=== PATIENT | male | born 1975 | race Caucasian/White ===

== ENCOUNTER 2020-08-06 15:43 | Emergency (ER) | payer OTHER, SELFPAY ==
--- NOTE | ~2020-08-06 | XR_ITS ---
XR chest 2V DATE: 08/06/2020 16:25 INDICATION: Tachycardia, shortness of breath, tingling fingers after running today TECHNIQUE: PA and lateral views COMPARISON: 05/18/2018 PA and lateral chest FINDINGS: Normal heart size. No hilar or mediastinal enlargement. No pulmonary infiltrate or consolid ation, pleural effusion or pulmonary vascular congestion or pneumothorax is detected. IMPRESSION: No active cardiopulmonary disease Reviewed, dictated and finalized at location A. [employer]
[2020-08-06 15:53] VITALS: BP 148/95; PULSE 83; RESP 16; TEMP 36.7; O2SAT 99
--- NOTE | 2020-08-06 16:00 | ECG_ITS ---
Measurements Intervals [place] Rate: 83 P: 49 DE: 175 QRS: 37 QRSD: 95 T: 15 QT: 344 QTc: 406 Interpretive Statements SINUS RHYTHM BORDERLINE ST-T WAVE ABNORMALITY- INFERIOR LEADS BORDERLINE ECG Electronically Signed On 08-06-2020 16:07:51 BIOLOGY SPECIALIST by Sameer Park D.O.
[2020-08-06 16:04] LABS: Glucose Point of Care 173 (65-105)
[2020-08-06 16:11] LABS: Basophils Percent Auto 0.5 % (0.2-1.2); Eosinophils Absolute Auto 0.2 K/mm3 (0-0.3); Eosinophils Percent Auto 2.5 % (0-4.4); Hematocrit 43.3 % (42.0-52.0); Hemoglobin 15.6 g/dL (14.0-18.0); Immature Granulocyte Absolute 0.02 K/mm3 (0.00-0.031); Immature Granulocyte Percent A 0.3 % (0-0.5); Lymphocytes Absolute Auto 1.56 K/mm3 (0.9-3.2); Lymphocytes Percent Auto 20.1 % (18.3-44.2); Mean Corpuscular Hemoglobin 29.9 pg (26-34); Mean Platelet Volume 9.6 fl (7.4-10.4); Monocytes Absolute Auto 0.6 K/mm3 (0.1-0.6); Monocytes Percent Auto 7.2 % (2.6-8.5); Neutrophils Absolute Auto 5.4 K/mm3 (1.3-6.7); Neutrophils Percent Auto 69.4 % (45.5-73.1); Platelet Count Result 228 k/mm3 (150-375); Red Blood Count 5.22 M/mm3 (4.6-6.20); Red Cell Distribution Width 12.2 % (11.5-14.5); White Blood Count 7.8 K/mm3 (4.5-10.0)
--- NOTE | 2020-08-06 16:23 | PC.NURSE ---
Pt to XRAY via WC.
[2020-08-06 16:26] LABS: Anion Gap 10 mmol/L (8-16); Blood Urea Nitrogen 12 mg/dL (9-20); Calcium 9.5 mg/dL (8.4-10.2); Carbon Dioxide 23 mmol/L (22-30); Chloride 104 mmol/L (98-107); Estimated CRCL calculation 109 ml/min; Estimated Glomerular Filt Rate > 60; Glucose 164 mg/dL (75-110); Potassium 3.8 mmol/L (3.4-5.0); Sodium 137 mmol/L (137-145)
[2020-08-06 17:10] VITALS: BP 137/93; PULSE 70; RESP 12; O2SAT 97
[2020-08-06 18:03] VITALS: BP 139/87; PULSE 75; RESP 18; O2SAT 98
[2020-08-06] MEDS: LACTATED RINGERS 1,000 ML 999 ML IV CONT (18:03)
[2020-08-06 18:06] LABS: Troponin I < 0.012 ng/mL (0.000-0.034)
[2020-08-06 18:09] LABS: Free T4 Free Thyroxine 1.33 ng/mL (0.78-2.19)
--- NOTE | 2020-08-06 18:34 | ED.ARRPALP ---
HPI - Arrhythmia/Palpitations General Chief Complaint: Dizziness Stated Complaint: palp/tingling Time Seen by Provider: 08/06/20 16:21 Source: patient Mode of arrival: ambulatory Limitations: no limitations History of Present Illness HPI narrative: 45-year-old male History of well-controlled type 1 diabetes Presents for evaluation of palpitations tingling and dyspnea He went for a approximately 2-1/2 mile run at a swifter pace than usual He had been home for a while following his run before the symptoms started, after his Apple Watch indicated a heart rate over 100 He did not have any chest pain no diaphoresis no nausea or vomiting The symptoms are now gone and he reports feeling really good Related Data Home Medications Medication Instructions Recorded Confirmed aspirin 81 mg tablet,delayed 81 mg PO DAILY 07/29/20 07/29/20 release Allergies Allergy/AdvReac Type Severity Reaction Status Date / Time No Known Allergies Allergy Verified 08/01/20 07:09 Review of Systems Review of Systems: All systems reviewed & are unremarkable except as noted in HPI and below Constitutional: Constitutional: Denies chills, Denies fatigue, Denies fever(s), Denies headache(s) and Denies weakness Eyes: Eyes: Reports no additional eye complaints and Denies change in vision ENT: Denies headache(s), Denies epistaxis, Denies nasal congestion and Denies sore throat Cardiovascular: Cardiovascular: Denies chest pain, Reports rapid heart rate, Denies leg edema, Denies palpitations and Denies dyspnea Respiratory: Respiratory: Denies cough, Reports dyspnea and Denies wheezing Gastrointestinal: Gastrointestinal: Denies abdominal pain, Denies diarrhea, Denies nausea and Denies vomiting Genitourinary: Genitourinary: Denies hematuria, Denies dysuria and Denies urinary frequency Musculoskeletal: Musculoskeletal: Denies deformity, Denies arthralgias, Denies joint swelling, Denies muscle weakness and Denies numbness Integumentary/Breasts: Skin/Breast: Denies rash and Denies wounds Neurologic: Denies headache(s), Denies focal weakness, Denies numbness and Denies weakness Comments: Tingling Psychiatric: Psychiatric: Reports no additional psychiatric complaints Endocrine: Endocrine: Denies fatigue and Denies palpitations Hematologic/Lymphatic: Hematologic/Lymphatic: Denies easy bleeding and Denies easy bruising Allergic/Immunologic: Allergic/Immunologic: Denies wheezing PMFSH Past Medical History Medical History (Updated 08/06/20 @ 18:46 by Dane Pardo MD) Chronic right shoulder pain Encounter for long-term (current) use of medications Family history of bicuspid aortic valve Hyperlipidemia Migraines Murmur Seasonal allergies Tonsillitis Type 1 diabetes mellitus Family History Family History Mother Family history of migraine headaches Hypertension Family history of malignant neoplasm of breast in first degree relative Mixed hyperlipidemia Sibling Family history of migraine headaches Asthma Family history of diabetes mellitus in first degree relative Diabetes mellitus Father Hypertension Family history of alcoholism Grandparent Testicular cancer Social History Social History Smoking status: Never smoker Second hand tobacco smoke exposure: No Alcohol intake: current Gender identity (if verbalized by the patient): Male Exam Const: General: no acute distress, well developed and awake Nutritional Appearance: well nourished Orientation/consciousness: patient oriented x3 (alert) Limitations: no limitations HENMT: Head: normocephalic and atraumatic Ears: external ears normal General nose exam: No nasal discharge present and no epistaxis Face and sinus: face symmetric Eyes: Conjunctivae: conjunctivae normal Sclera: sclerae normal EOM: EOMs intact bilaterally Neck: Neck: norm
[2020-08-06 19:01] VITALS: BP 141/93; PULSE 82; RESP 16; O2SAT 99
== END 2020-08-06 19:04 | disposition home or self-care (01) ==
PROVIDERS: Emergency Medicine; Emergency Provider Emergency Medicine; PCP Internal Medicine
DX: R00.2 Palpitations (principal); E10.9 Type 1 diabetes mellitus without complications; E78.5 Hyperlipidemia, unspecified
CPT/HCPCS: 36415; 71046; 80048; 84439; 84443; 84484; 85025; 93005; 96360; 99284; J7120

== ENCOUNTER 2020-08-18 14:21 | Outpatient (CLI) | payer OTHER, SELFPAY ==
--- NOTE | 2020-08-18 14:46 | ECHO_ITS ---
Patient Info Name: Hans Graham Age: 45 years : 1975 Gender: Male Ht: 74 in Wt: 230 lbs BSA: 2.35 m2 HR: 62 bpm BP: 153 / 98 mmHg Technical Quality: Good Exam Date: 08/18/2020 2:52 PM Exam Location: [facility] Pulmonary Patient Status: Outpatient Admit Date: 08/18/2020 Staff Ordering Physician: Wilian Youngblood MD [employer] Manager: Filomena Palmer RDCS Attending Provider: Wilian Youngblood MD Referring Physician: Rylie MARTÍNEZ; Exam Type: CA echo doppler color flow Study Info Indications - murmur palpitations Complete two-dimensional, color flow and Doppler transthoracic echocardiogram is performed. Summary 1. Complete two-dimensional, color flow and Doppler transthoracic echocardiogram is performed. 2. Left ventricular chamber dimension is normal. 3. Left ventricular systolic function is normal, estimated at 60-65%. 4. The left ventricular diastolic function is grade I diastolic dysfunction. 5. E/e' 7 is not elevated. 6. No pulmonary hypertension, estimated pulmonary arterial systolic pressure is 23 mmHg. Left Ventricle E/e' 7 is not elevated. Left ventricular chamber dimension is normal. Left ventricular systolic function is normal, estimated at 60-65%. The left ventricular diastolic function is grade I diastolic dysfunction. Right Ventricle Right ventricular chamber dimension is normal. Right ventricular systolic function is normal. Left Atria Left atrial chamber dimension is normal. Right Atria Right atrial chamber dimension is normal. Aortic Valve The aortic valve is trileaflet. There is no aortic valve stenosis. There is no aortic valve regurgitation. Pulmonic Valve There is no pulmonic regurgitation. Mitral Valve There is no mitral valve stenosis. There is no mitral valve regurgitation. Tricuspid Valve There is no tricuspid valve regurgitation. No pulmonary hypertension, estimated pulmonary arterial systolic pressure is 23 mmHg. Pericardium/Pleural There is no pericardial effusion. Inferior Vena Cava Normal inferior vena cava with >50% collapse upon inspiration consistent with normal right atrial pressure, 5 mmHg. Aorta The aortic root size at the sinus of Valsalva is normal. Left Ventricular Outflow Tract Name Value Normal LVOT 2D LVOT Diameter 2.0 cm LVOT Doppler LVOT Peak Gradient 4 mmHg LVOT Mean Gradient 2 mmHg LVOT VTI 22 cm LVOT VTI/AV VTI Ratio 1.0 LVOT Stroke Volume 69 ml LVOT CO 13.8 l/min LVOT CI 5.9 l/min/m2 Pulmonic Valve Name Value Normal PV Doppler PV Peak Gradient 3 mmHg Mitral Valve
--- NOTE | 2020-08-25 12:36 | WPDHOLTEREM ---
Holter/Event Monitor Holter/Event Monitor Date of procedure: 08/18/20 Procedure Type: 48 holter monitor Indications: Palpitations Conclusion: 1. 48 hour holter monitor on 08/18/20. 2. Underlying rhythm is sinus rhythm. HR range 44-138 bpm; average HR 72 bpm. 3. There are 20 premature supraventricular complexes and 2 supraventricular couplets. No supraventricular tachycardia. 4. There are 40 premature ventricular complexes. No ventricular tachycardia. 5. No sinoatrial or atrioventricular blocks. No significant pauses greater than 2 seconds. 6. Patient reports symptoms of heart racing, shortness of breath which demonstrate sinus rhythm, HR range 64-87 bpm.
== END 2020-08-18 14:22 | disposition home or self-care (01) ==
LOC: ANHCARD 14:22
PROVIDERS: PCP Internal Medicine; Visit Provider Internal Medicine
DX: R01.1 Cardiac murmur, unspecified (principal); R00.2 Palpitations; Z82.79 Family history of other congenital malformations, deformations and chromosomal abnormalities
CPT/HCPCS: 93225; 93226; 93306

== ENCOUNTER 2022-11-12 09:28 | Outpatient (CLI) | payer OTHER, SELFPAY ==
--- NOTE | ~2022-11-12 | XR_ITS ---
EXAMINATION: XR UGIAC wo kub DATE: 11/12/2022 10:43 INDICATION: Dysphagia. TECHNIQUE: The patient drank thick barium, gas-producing crystals, and thin barium. Fluoroscopy of th e esophagus, stomach, and proximal small bowel was performed. Fluoroscopy exposure time was 0.5 minut es. The total number of images was 275. Total dose-area product was 1.908 Gy-cm^2. COMPARISON: None. FINDINGS: There is no mass or stricture of the esophagus. Esophageal motility is normal. There is no hiatal hernia. There was no gastroesophageal reflux with provocative maneuvers. The stomach and proxi mal small bowel show normal folding patterns. IMPRESSION: 1. Normal upper gastrointestinal series. Reviewed, dictated and finalized at location A.
--- NOTE | ~2022-11-12 | XR_ITS ---
EXAMINATION: XR barium swallow modified DATE: 11/12/2022 10:43 INDICATION: Dysphagia. TECHNIQUE: The patient was given barium-containing material of multiple consistencies to swallow by t he speech pathologist while I performed fluoroscopy. Fluoroscopy exposure time was 0.3 minutes. The n umber of fluoroscopy images saved to the PACS was 1. Dose-area product was 2.288 Gy-cm^2. FINDINGS: The oral stage, pharyngeal stage, and cervical/esophageal stage of the swallow are normal. IMPRESSION: 1. Normal swallow. 2. Please refer to the speech therapy report for recommendations. Reviewed, dictated and finalized at location A.
--- NOTE | 2022-11-12 10:30 | REHSTMBS ---
Assessment and note entered by Ashley Berumen, AIRCONDITIONING DRAFTING OFFICER Modified Barium Swallow Evaluation Feeding Type Recommended Oral Food Consistency Regular, Level 7 Liquid Consistency Thin (0) ST Clinical Summary MODIFIED BARIUM SWALLOW STUDY (MBS) This patient was seen for a Modified Barium Swallow study at the request of his physician. Patient actually denies difficulty at the pharyngeal level but states [id number] solid foods such as steak, chicken, and pizza tend to hang up at the lower esophageal level/stomach level and he has to walk around, drink water, or even bend over to facilitate clearing the material at that level. Patient was viewed in the lateral position to the level of C5/C6. He was presented with various consistencies and consistently exhibited quick swallows with no pharyngeal residue and no risk for aspiration. Patient may remain on Regular Diet and Regular Liquids. He should cut meat into smaller pieces, chew thoroughly, and use gravy and other forms of moisture to facilitate movement of material through the pharynx. He was to receive another assessment of the esophagus after the MBS. Patient is referred back to his physician for further assessment of his complaints.
== END 2022-11-12 09:29 | disposition home or self-care (01) ==
PROVIDERS: PCP Internal Medicine; Visit Provider Internal Medicine
DX: R13.10 Dysphagia, unspecified (principal)
CPT/HCPCS: 74246; 92611

== ENCOUNTER 2023-10-07 08:23 | Outpatient (CLI) | payer OTHER, SELFPAY ==
--- NOTE | ~2023-10-07 | XR_ITS ---
Clinical Indication: Cough PA and lateral views of the chest: Comparison: 08/06/2020 Findings: The lungs are clear, without evidence of focal consolidation or pleural effusion. Cardiome diastinal silhouette is within normal limits. Bones and soft tissues are unremarkable. Impression: Normal chest. Reviewed, dictated and finalized at [facility]. OTICS INVESTIGATOR Impression: Normal chest.
== END 2023-10-07 08:24 ==
PROVIDERS: PCP Internal Medicine; Visit Provider Internal Medicine
DX: R05.9 Cough, unspecified (principal); R53.83 Other fatigue; E10.9 Type 1 diabetes mellitus without complications
CPT/HCPCS: 71046

== ENCOUNTER 2023-10-07 11:07 | Outpatient (CLI) | payer OTHER, SELFPAY ==
[2023-10-07 11:26] LABS: Basophils Percent Auto 0.2 % (0.2-1.2); Eosinophils Percent Auto 0.7 % (0-4.4); Hematocrit 41.5 % (42.0-52.0); Hemoglobin 14.2 g/dL (14.0-18.0); Immature Granulocyte Absolute 0.02 K/mm3 (0.00-0.031); Immature Granulocyte Percent A 0.4 % (0-0.5); Lymphocytes Absolute Auto 0.62 K/mm3 (0.9-3.2); Lymphocytes Percent Auto 11.5 % (18.3-44.2); Mean Corpuscular HGB Conc 34.2 g/dl (32-36); Mean Corpuscular Hemoglobin 29.5 pg (26-34); Mean Corpuscular Volume 86.1 fl (80-100); Mean Platelet Volume 9.6 fl (7.4-10.4); Monocytes Absolute Auto 0.7 K/mm3 (0.1-0.6); Monocytes Percent Auto 13.7 % (2.6-8.5); Neutrophils Percent Auto 73.5 % (45.5-73.1); Platelet Count Result 148 k/mm3 (150-375); Red Blood Count 4.82 M/mm3 (4.6-6.20); Red Cell Distribution Width 13.1 % (11.5-14.5); White Blood Count 5.4 K/mm3 (4.5-10.0)
[2023-10-07 12:01] LABS: Influenza A QL RT-PCR Positive (Negative); Influenza B QL RT-PCR Negative (Negative); RSV RNA, RT-PCR Negative (Negative); SARS-CoV-2 RNA PCR Negative (Negative)
== END 2023-10-07 11:08 | disposition home or self-care (01) ==
LOC: ANHLAB 11:07
PROVIDERS: PCP Internal Medicine; Visit Provider Internal Medicine
DX: R50.9 Fever, unspecified (principal); R05.9 Cough, unspecified; Z20.822 Contact with and (suspected) exposure to COVID-19
CPT/HCPCS: 36415; 85025; 87637

== ENCOUNTER 2024-12-06 11:13 | Outpatient (CLI) | payer OTHER, SELFPAY ==
--- NOTE | ~2024-12-06 | XR_ITS ---
XR shoulder LT min 2V 12/06/2024 11:40 Indication: Left shoulder pain Procedure: 4 views left shoulder Comparison: No prior studies for comparison. Findings: No fracture, subluxation or dislocation. No focal soft tissue abnormality. No foreign body. There is anatomic alignment. Impression: 1: No significant bone or joint abnormality. Reviewed, dictated and finalized at location A. Impression: 1: No significant bone or joint abnormality.
--- OUTSIDE RECORDS SUMMARY | 2024-12-06 12:03 | XMS_ITS | Clinical Summary ---
Author Organization [facility] Address [address] [place] [address] Phone Care Team Providers Care Cocoa Butter Filter Operator Name Role Phone Simon Duenas DO Primary Care Provider Allergies No known active allergies Medications simvastatin (ZOCOR) 10 mg tablet Take 10 mg by mouth Daily LATE. Active insulin lispro (HUMALOG) 100 unit/mL Solution Inject by subcutaneous injection. Active Active Problems Problem Noted Date Diagnosed Date Sebaceous cyst 10/23/2014 Family History Medical History Relation Name Comments Diabetes Brother Healthy Father Diabetes Maternal Grandfather Healthy Mother Testicular Cancer Paternal Grandfather Relation Name Status Comments Brother Father Alive Maternal Grandfather Mother Alive Paternal Grandfather Social History Tobacco Use Types Packs/Day Years Used Date Smoking Tobacco: Never Alcohol Use Standard Drinks/Week Comments Yes 0 (1 standard drink = 0.6 oz pur e alcohol) Sex and Gender Information Value Date Recorded Sex Assigned at Not on file Legal Sex Male 3:15 PM PROFESSOR OF FAMILY MEDICINE Gender Identity Not on file Sexual Orientation Not on file Last Filed Vital Signs Vital Sign Reading Time Taken Comments Blood Pressure 112/75 10/22/2014 1:41 PM PROFESSOR OF FAMILY MEDICINE Pulse - - Temperature - - Respiratory Rate - - Oxygen Saturation - - Inhaled Oxygen Concentration - - Weight 99.8 kg (220 lb) 10/22/2014 1:41 PM PROFESSOR OF FAMILY MEDICINE Height 188 cm (6' 2 ) 10/22/2014 1:41 PM PROFESSOR OF FAMILY MEDICINE Body Mass Index 28.25 10/22/2014 1:41 PM PROFESSOR OF FAMILY MEDICINE Plan of Treatment Health Maintenance Due Date Last Done Comments DTAP/TDAP/TD VACCINES (1 - Tdap) 1995 HEPATITIS B VACCINES (1 of 3 - 19+ 3-dose series) 06/29 COLORECTAL SCREENING 2021 Colorectal Cancer Screening 2021 FIT-DNA Q 3 years 2021 FIT/FOBT Q 1 year 2021 Flex Sig/CT Colonography Q 5 years 2021 INFLUENZA VACCINE (#1) 2024 Insurance [facility] BLUE ACCESS CHOICE Care Teams Cocoa Butter Filter Operator Relationship Specialty Start Date End Date Simon Duenas DO PCP - General 08/14/15
--- OUTSIDE RECORDS SUMMARY | 2024-12-06 12:03 | XMS_ITS | Referral Summary ---
Author Organization [facility] Address [address] [place] [address] Care Team Providers Care Clam Dredger Name Role Phone Simon Duenas DO Primary Care Provider [phone] Simon Duenas DO Unavailable [phone] Allergies No known active allergies Medications VENTOLIN HFA 90 mcg/actuation inhaler 9 Active atorvastatin (LIPITOR) 20 mg tablet 9 Active HUMALOG U-100 INSULIN 100 unit/mL injection 9 Active ONETOUCH VERIO strip 9 Active blood-glucose meter (ONETOUCH VERIO IQ METER) misc 1 kit by Not Applicable route as directed 8 Active SYMBICORT 160-4.5 mcg/actuation inhaler 9 Active lancets (MICROLET LANCET) misc 1 each by Not Applicable route 4 (four) times a day 8 Active simvastatin (ZOCOR) 10 mg tablet Take 10 mg by mouth Active tadalafil (CIALIS) 5 mg tablet Take 5 mg by mouth daily as needed 8 Active Active Problems Problem Noted Date Diagnosed Date Type 1 diabetes mellitus without complication Overview (12/02/2016): DMI WO CMP NT ST UNCNTRL Pure hypercholesterolemia 01/12/2014 Overview (12/02/2016): PURE HYPERCHOLESTEROLEM Social History Tobacco Use Types Packs/Day Years Used Date Smoking Tobacco: Never Assessed Alcohol Use Standard Drinks/Week Comments No 0 (1 standard drink = 0.6 oz pur e alcohol) Sex and Gender Information Value Date Recorded Sex Assigned at Not on file Legal Sex Male 12:55 AM [employer] Gender Identity Not on file Sexual Orientation Not on file Plan of Treatment Not on file Insurance CHOICE PLUS CHOICE PLUS Care Teams Clam Dredger Relationship Specialty Start Date End Date Simon Duenas DO PCP - General 09/01/17 Simon Duenas DO 09/01/17
--- OUTSIDE RECORDS SUMMARY | 2024-12-06 12:03 | XMS_ITS | Clinical Summary ---
Author Organization [facility] [employer] Address [address] [place] [address] Care Team Providers Care Case Technician Name Role Phone Wilian Youngblood MD Primary Care Provider [phone] Source Comments [facility] [employer],non-owned Affiliates and Associated Physician Practices is amultiple site organization consisting of ambulatory clinics and hospital sitesin [place], [place], [place] and [place]. This disclosure is being madepursuant to the Care Everywhere program and may not contain all information available regarding this patient. Last updated [email or web address] Allergies No known active allergies Medications * Be aware that medications may not be up to date on this document. Alwaysverify current medications with the patient. Medication Sig Dispensed Refills Start Date End Date Status Blood Glucose Monitoring Suppl (Loudie VERIO IQ SYSTEM) W/DEVICE KIT Use 1 kit as directed 1 kit 8 Active blood glucose (HAMLET CONTOUR NEXT TEST) test strip Use 1 strip 4 times daily 400 strip 1 8 Active CIALIS 5 MG tablet Take 1 (one) tablet by mouth once as needed 8 Active ezetimibe (ZETIA) 10 MG tablet 1 Active rosuvastatin (CRESTOR) 40 MG tablet Take 1 (one) tablet by mouth once daily 1 Active vitamin D3 (Cholecalciferol) 25 MCG (1000 UNITS) tablet Take 4 (four) tablets by mouth once daily Active omeprazole EC (PriLOSEC OTC) 20 MG tablet Take 1 (one) tablet by mouth daily before breakfast Active Multiple Vitamin (MULTIVITAMIN ADULT PO) Active insulin glargine (Lantus/Semglee) 100 units/mL pen Inject 24 (twenty four) Units subcutaneously at bedtime 15 mL 1 2 Active Additional Information Patient not taking.Reported on 06/06/2024 Insulin Syringes, Disposable, U-100 1 ML MISCIndications:T ype 1 diabetes mellitus without complication (HCC) Use 1 Each 3 times daily 100 Each 3 Active OneTouch Verio test stripIndications: Type 1 diabetes mellitus without complication (HCC) USE 1 STRIP WITH METER 4 TIMES DAILY 400 strip 3 3 Active albuterol HFA (Proventil; Ventolin; Proair) 108 (90 Base) MCG/ACT inhaler INHALE 1 PUFF BY MOUTH EVERY 4 HOURS NEEDED FOR SHORTNESS OF BREATH AND/OR WHEEZING 4 Active buPROPion XL 24hr (Wellbutrin-XL) 150 MG tablet 4 Active LORazepam (Ativan) 0.5 MG tablet 4 Active Continuous Glucose Transmitter (Dexcom G6 Transmitter) MISCIndications:T ype 1 diabetes mellitus without complication (HCC) USE ONE TRANSMITTER WITH WHITE SUGAR SUPERVISOR/SENSORS AND REPLACE EVERY 3 MONTHS 1 Each 1 4 Active Continuous Glucose Sensor (Dexcom G7 Sensor) MISCIndications:T ype 1 diabetes mellitus without complication (HCC) Use 1 Each every 10 days 9 Each 3 4 Active insulin lispro (HumaLOG) 100 UNIT/ML vial INJECT SUBCUTANEOUSLY UP TO 90 UNITS DAILY VIA INSULIN PUMP 90 mL 5 Active insulin lispro (HumaLOG) 100 UNIT/ML vial INJECT SUBCUTANEOUSLY UP TO 90 UNITS DAILY VIA INSULIN PUMP 90 mL 5 12/04/19 25 Discontinued Active Problems Problem Noted Date Diagnosed Date Dyslipidemia 08/03/2018 Type 1 diabetes mellitus without complication Overview (07/09/2020): Overview: DMI WO CMP NT ST UNCNTRL Dietary counseling and surveillance 07/11/2012 Encounters Date Type Department Care Team Description 12/02/2024 Refill [facility] - Endocrinology [address] [place] [address], [address] [place] [address] Ramos Tapia MD Refill Request 10/16/2024 10:40 AM AUTOMOBILE INSURANCE CLAIM EXAMINER Video Visit [facility] Endocrinology [address] [place] [address], [address] [place] [address] Ramos Tapia MD Type 1 diabetes mellitus without complication ; Insulin pump titration; Dyslipidemia 09/25/2024 Refill [facility] - Endocrinology [address] [place] [address], [address] [place] [address] Ramos Tapia MD Refill Request from Last 3 Months Immunizations Name Administration Dates Next Due INFLUENZA VACCINE, QUADR. (F LUZONE; FLULAVAL; FLUARIX; AFLURIA QUADRIVALENT; 6MO+), 0.5 ML (IIV4) 05/07/2020,06/25/2019 Family History Medical History Relation Name Comments Diabetes - Type 1 Brother Diabetes - Type 2 Maternal Grandfather Diabetes - Type 2 Maternal Uncle Cancer - Breast Mother Diabetes - Gestational Sister Relation Name Status Comments Brother Father Alive Maternal Grandfather Maternal Uncle Mother Alive Sister Social History Tobacco Use Types Packs/Day Years Used Date Smoking Tobacco: Never Smokeless Tobacco: Never Tobacco Cessation:Counseling Given: Not Answered Alcohol Use Standard Drinks/Week Comments Yes 2 (1 standard drink = 0.6 oz pur e alcohol) 5 days per week Sex and Gender Information Value Date Recorded Sex Assigned at Male 03/05/2021 8:22 AM CDT Gender Identity Male 03/05/2021 8:22 AM CDT Sexual Orientation Straight 03/05/2021 8: 22 AM CDT Last Filed Vital Signs Vital Sign Reading Time Taken Comments Blood Pressure 116/70 06/06/2024 11:13 AM CDT Pulse - - Temperature - - Respiratory Rate - - Oxygen Saturation - - Inhaled Oxygen Concentration - - Weight 108.4 kg (239 lb) 06/06/2024 11:13 AM CDT Height 188 cm (6' 2 ) 06/06/2024 11:13 AM CDT Body Mass Index 30.69 06/06/2024 11:13 AM CDT Plan of Treatment Health Maintenance Due Date Last Done Comments COLOGUARD (AGES 45-75) - COLON CA SCREENING 1976 COLON MONITORING 1976 COLONOSCOPY - COLON CA SCREENING 1976 CT COLONOGRAPHY - COLON CA SCREENING 1976 Colorectal Cancer Screening 1976 FIT - COLON CA SCREENING 1976 FLEX SIG - COLON CA SCREENING 1976 HIV SCREENING 1991 HEPATITIS C SCREENING 07/09/1994 DTAP/TDAP/TD VACCINES (1 - Tdap) 1995 HEPATITIS B VACCINE (1 of 3 - 19+ 3-dose series) 1995 PNEUMOCOCCAL VACCINE (1 of 2 - PCV) 1995 DIABETES RETINOPATHY SCREENING 10/16/2020 10/16/2018, 09/28/2017 COVID-19 VACCINE (1 - season) 2024 DEPRESSION SCREENING 08/29/2024 DIABETES-FOOT EXAM WITH MONOFILAMENT 02/14/2025 02/15/2024 INFLUENZA VACCINE (Season Ended) 2025 05/07/2020, 06/25/2019 DIABETES-HGB A1C 05/29/2025 11/27/2024, 04/2024, 02/15/2024, Additional history exists DIABETES - URINE PROTEIN SCREENING 11/27/2025 11/27/2024, 10/05/2023, 07/21/2022, Additional history exists DIABETES-SERUM CREATININE 11/27/20252024, 10/05/2023, 07/21/2022, Additional history exists ZOSTER VACCINE (1 of 2) 2026 HIB VACCINE Aged Out No longer eligi ble based on patient's age to complete this topic HPV VACCINE Aged Out No longer eligi ble based on patient's age to complete this topic MENINGOCOCCAL (Group B) VACCINE SHARED DECISION-MAKING Aged Out No longer eligible based on patient's age to complete this topic MENINGOCOCCAL GROUPS A/C/Y/W VACCINE Aged Out No longer eligible based on patient's age to complete this topic Procedures Procedure Name Priority Date/Time Associated Diagnosis Comments HEMOGLOBIN A1C Routine 11/27/2024 11:25 AM CDT Type 1 diabetes mellitus without complication (HCC) TSH Routine 11/27/2024 11:25 AM CDT Type 1 diabetes mellitus without complication (HCC) MICROALB/CREAT RATIO URINE RANDOM PANEL Routine 11/27/2024 11:25 AM CDT Type 1 diabetes mellitus without complication (HCC) LIPID PROFILE REFLEX LDL DIRECT Routine 11/27/2024 11:25 AM CDT Type 1 diabetes mellitus without complication (HCC) COMPREHENSIVE METABOLIC PANEL Routine 11/27/2024 11:25 AM CDT Type 1 diabetes mellitus without complication (HCC) DIABETES EYE EXAM Routine 10/16/2018 from Last 3 Months or Most Recently Relevant to Health Maintenance Results * LIPID PROFILE REFLEX LDL DIRECT (11/27/2024 11:25 AM CDT) [facility] Signature Cholesterol 158 100 - 199 mg/dL [facility] ACCOUNT BILL Triglycerides 61 0 - 149 mg/dL [facility] ACCOUNT BILL HDL Cholesterol 65 >39 mg/dL [facility] ACCOUNT BILL VLDL Calculated 12 5 - 40 mg/dL [facility] ACCOUNT BILL LDL Calculated 81 0 - 99 mg/dL [facility] ACCOUNT BILL Cholesterol/HDL Ratio 2.4 0.0 - 5.0 ratio [facility] ACCOUNT BILL Comment: T. Chol/HDL Ratio Men Women 1/2 Avg.Risk 3.4 3.3 Avg.Risk 5.0 4.4 2X Avg.Risk 9.6 7.1 3X Avg.Risk 23.4 11.0 LDL/HDL Ratio 1.2 0.0 - 3.6 ratio [facility] ACCOUNT BILL Comment: LDL/HDL Ratio Men Women 1/2 Avg.Risk 1.0 1.5 Avg.Risk 3.6 3.2 2X Avg.Risk 6.2 5.0 3X Avg.Risk 8.0 6.1 Blood BLOOD SPECIMEN / Unknown 11/27/2024 11:25 AM CDT 11/27/2024 Narrative [facility] ACCOUNT BILL - 11/28/2024 8:07 AM CDT Performed at: 01 - [facility] [id number] [employer] Card Checker: Ryan Hall PhD, Phone: [phone] Ramos Tapia MD LAB - CHEMISTRY ORD ERABLES Performing Organization Address City/[facility]/ZIP Co de Phone Number [facility] ACCOUNT BILL [address] [place] [address] * MICROALB/CREAT RATIO URINE RANDOM PANEL (11/27/2024 11:25 AM CDT) Creatinine Urine 111.9 Not Estab. mg/dL [facility] ACCOUNT BILL Microalbumin Urine 8.0 Not Estab. ug/mL [facility] ACCOUNT BILL Microalbumin/Crea tinine Ratio 7 0 - 29 mg/g creat [facility] ACCOUNT BILL Comment: Normal: 0 - 29 Moderately increased: 30 - 300 Severely increased: >300 Urine URINE SPECIMEN OBTAINED BY CLEAN CATCH PROCEDURE / Unknown 11/27/2024 11:25 AM CDT 11/27/2024 Narrative [facility] ACCOUNT BILL - 11/28/2024 12:07 PM CDT Performed at: - [address] [id number] [employer] Card Checker: Ryan Hall PhD, Phone: Voltaire Ramos Tapia MD LAB - URINE WALL MIRROR DEPARTMENT SUPERVISOR RY ORDERABLES Performing Organization Address [facility] Co de Phone Number [facility] ACCOUNT BILL [address] [place] [address] * (ABNORMAL) HEMOGLOBIN A1C (11/27/2024 11:25 AM CDT) Hemoglobin A1c 7.0(H) 4.8 - 5.6 % [facility] ACCOUNT BILL Comment: Prediabetes: 5.7 - 6.4 Diabetes: >6.4 Glycemic control for adults with diabetes: <7.0 Blood BLOOD SPECIMEN / Unknown 11/27/2024 11:25 AM CDT 11/27/2024 Narrative [facility] ACCOUNT BILL - 11/28/2024 6:06 AM CDT Performed at: [address] [place] [id number] [employer] Card Checker: Ryan Hall PhD, Phone: [phone] Ramos Tapia MD LAB - CHEMISTRY ORD ERABLES [facility] ACCOUNT BILL [address] [place] [address] * (ABNORMAL) COMPREHENSIVE METABOLIC PANEL (11/27/2024 11:25 AM CDT) Glucose 135(H) 70 - 99 mg/dL [facility] ACCOUNT BILL BUN 8 6 - 24 mg/dL [facility] ACCOUNT BILL Creatinine 1.01 0.76 - 1.27 mg/dL [facility] ACCOUNT BILL eGFR by CKD-EPI 92 >59 mL/min/1.7 3 [facility] ACCOUNT BILL BUN/Creatinine Ratio 8(L) 9 - 20 [facility] ACCOUNT BILL Sodium 140 134 - 144 mmol/L [facility] ACCOUNT BILL Potassium 5.0 3.5 - 5.2 mmol/L [facility] ACCOUNT BILL Chloride 103 96 - 106 mmol/L [facility] ACCOUNT BILL CO2 24 20 - 29 mmol/L [facility] ACCOUNT BILL Calcium 9.3 8.7 - 10.2 mg/dL [facility] ACCOUNT BILL Protein Total 6.7 6.0 - 8.5 g/dL [facility] ACCOUNT BILL Albumin 4.6 4.1 - 5.1 g/dL [facility] ACCOUNT BILL Globulin Total 2.1 1.5 - 4.5 g/dL [facility] ACCOUNT BILL Bilirubin Total 0.5 0.0 - 1.2 mg/dL [facility] ACCOUNT BILL Alkaline Phosphatase 77 44 - 121 IU/L [facility] ACCOUNT BILL AST 27 0 - 40 IU/L [facility] ACCOUNT BILL ALT 33 0 - 44 IU/L [facility] ACCOUNT BILL Blood BLOOD SPECIMEN / Unknown 11/27/2024 11:25 AM CDT 11/27/2024 Narrative [facility] ACCOUNT BILL - 11/28/2024 8:07 AM CDT Performed at: 01 - [facility] [id number] [employer] Card Checker: Ryan Hall PhD, Phone: [phone] Ramos Tapia MD LAB - CHEMISTRY ORD ERABLES [facility] ACCOUNT BILL [address] [place] [address] * TSH (11/27/2024 11:25 AM CDT) TSH 2.220 0.450 - 4.500 uIU/mL [facility] ACCOUNT BILL Blood BLOOD SPECIMEN / Unknown 11/27/2024 11:25 AM CDT 11/27/2024 Narrative [facility] ACCOUNT BILL - 11/28/2024 8:07 AM CDT Performed at: 01 - [facility] [id number] [place], [place] [id number] [employer] Card Checker: Ryan Hall PhD, Phone: [phone] Ramos Tapia MD LAB - CHEMISTRY ORD ERABLES [facility] ACCOUNT BILL [address] [place] [address] * DIABETES EYE EXAM (10/16/2018) Terell Betts HEALTH MAINTENANCE from Last 3 Months or Most Recently Relevant to Health Maintenance Care Teams Case Technician Relationship Specialty Start Date End Date Wilian Youngblood MD [address] [place] [address] PCP - General Internal Medicine 11/02/22
--- OUTSIDE RECORDS SUMMARY | 2024-12-06 12:03 | XMS_ITS | Clinical Summary ---
Author Organization [facility] Address [address] [place] [address] Care Team Providers Care Heavy Equipment Service Manager Name Role Phone Simon Duenas DO Primary Care Provider [phone] Simon Duenas DO Unavailable [phone] Allergies No known active allergies Medications VENTOLIN [...] Pure hypercholesterolemia 01/12/2014 Overview (12/02/2016): PURE HYPERCHOLESTEROLEM Medical History Medical History Date Comments Diabetes mellitus (HCC) Diabetes Hyperlipidemia Hyperlipidemia Family History Medical History Relation Name Comments Coronary artery disease Other Fami ly history of Coronary artery disease; Hyperlipidemia Other Family histor y of Hyperlipidemia; Hypertension Other Family history of Hypertension; Other Other Family history of Diabetes -Type I; Relation Name Status Comments Other Social History Tobacco Use Types Packs/Day Years Used Date Smoking Tobacco: Never Assessed Alcohol Use Standard Drinks/Week Comments No 0 (1 standard drink = 0.6 oz pur e alcohol) Sex and Gender Information Value Date Recorded Sex Assigned at Not on file 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
== END 2024-12-06 11:14 | disposition home or self-care (01) ==
PROVIDERS: PCP Internal Medicine; Visit Provider Internal Medicine
DX: M25.512 Pain in left shoulder (principal); M25.619 Stiffness of unspecified shoulder, not elsewhere classified
CPT/HCPCS: 73030

== ENCOUNTER 2025-04-02 10:24 | Outpatient (CLI) | payer OTHER, SELFPAY ==
--- NOTE | ~2025-04-02 | XR_ITS ---
[id number] 04/02/2025 10:57 Indication: Right foot pain Procedure: 4 views right foot Comparison: No prior studies for comparison. Findings: There is an oblique intra-articular fracture of the first proximal phalanx extending to the interphalangeal joint. Minimal displacement. No other fracture. Mild soft tissue swelling. Lisfranc joint intact. Impression: 1: Oblique minimally displaced intra-articular fracture left first proximal phalanx involving the int erphalangeal joint. Reviewed, dictated and finalized at location A. Impression: 1: Oblique minimally displaced intra-articular fracture left first proximal pha lanx involving the interphalangeal joint.
--- NOTE | ~2025-04-02 | XR_ITS ---
XR ankle LT min 3V 04/02/2025 10:57 Indication: Left ankle pain Procedure: 4 views left ankle Comparison: No prior studies for comparison. Findings: No fracture, subluxation or ankle mortise intact. Talar dome is normal. Impression: 1: No acute fracture. Reviewed, dictated and finalized at location A. Impression: 1: No acute fracture.
--- NOTE | ~2025-04-02 | XR_ITS ---
XR ankle RT min 3V 04/02/2025 10:57 INDICATION: Right foot pain PROCEDURE: 4 views right foot COMPARISON: No prior studies for comparison. FINDINGS: Fracture, dislocation or subluxation is not identified. The soft tissues appear within norm al limits. No foreign bodies are identified. IMPRESSION: 1: NO ACUTE BONE OR JOINT ABNORMALITY IDENTIFIED. Reviewed, dictated and finalized at location A.
--- NOTE | ~2025-04-02 | XR_ITS ---
[id number] 04/02/2025 10:57 Indication: Right foot pain Procedure: 4 views right foot Comparison: No prior studies for comparison. Findings: There is a small ossific density medial to the first interphalangeal joint, likely related to prior trauma. No acute fracture or traumatic malalignment. Lisfranc joint intact. No focal soft ti ssue abnormality. No foreign bodies. Impression: 1: No acute fracture. Reviewed, dictated and finalized at location A. Impression: 1: No acute fracture.
--- OUTSIDE RECORDS SUMMARY | 2025-04-02 10:52 | XMS_ITS | Referral Summary ---
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
--- OUTSIDE RECORDS SUMMARY | 2025-04-02 10:52 | XMS_ITS | Clinical Summary ---
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
--- OUTSIDE RECORDS SUMMARY | 2025-04-02 10:52 | XMS_ITS | Clinical Summary ---
Author Organization [facility] Address [address] [place] [address] Care Team Providers Care Tugger Operator Name Role Phone Wilian Youngblood MD Primary Care Provider [phone] Social History Tobacco Use Types Packs/Day Years Used Date Smoking Tobacco: Never Assessed Sex and Gender Information Value Date Recorded Sex Assigned at Not on file Legal Sex Male 8:11 AM CDT Gender Identity Not on file Sexual Orientation Not on file Plan of Treatment Health Maintenance Due Date Last Done Comments Colorectal Cancer Screening Colonoscopy (10 Years) 1976 Kidney Health Evaluation 1976 Annual Physical 1979 Hepatitis C 1994 DTaP, Tdap and Td Vaccines (1 - Tdap) 1995 Hepatitis B Vaccines (1 of 3 - 19+ 3-dose series) 1995 Pneumococcal Vaccine: Pediatrics (0 to 5 Years) and At-Risk Patients (6 to 49 Years) (1 of 2 - PCV) 1995 Diabetes: Retinopathy Eye Exam 10/16/2020 10/16/2018 COVID-19 Vaccine ( - 2023- season) 2024 Hemoglobin A1C 05/29/2025 11/27/2024, 10/0 04/2024, 02/15/2024, Additional history exists Lipid Panel 11/27/2025 11/27/2024 Meningococcal B Vaccine Aged Out No l onger eligible based on patient's age to complete this topic Meningococcal Vaccine Aged Out No kasi tahmina eligible based on patient's age to complete this topic RSV Immunizations Under 20 Months Aged Out No longer eligible based on patient's age to complete this topic Insurance [facility] Care Teams Tugger Operator Relationship Specialty Start Date End Date Wilian Youngblood MD [address] - [facility] [[email or web address] [address] [place] [address] PCP - General INTERNAL MEDICINE 12/18/24
--- OUTSIDE RECORDS SUMMARY | 2025-04-02 10:52 | XMS_ITS | Clinical Summary ---
Author Organization [facility] Address [address] 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 Gender Identity Not on file Sexual Orientation Not on file Last Filed Vital Signs Vital Sign Reading Time Taken Comments Blood Pressure 112/75 10/22/2014 1:41 PM CONCRETE HOPPER OPERATOR Pulse - - Temperature - - Respiratory Rate - - Oxygen Saturation - - Inhaled Oxygen Concentration - - Weight 99.8 kg (220 lb) 10/22/2014 1:41 PM CONCRETE HOPPER OPERATOR Height 188 cm (6' 2) 10/22/2014 1:41 PM CONCRETE HOPPER OPERATOR Body Mass Index 28.25 10/22/2014 1:41 PM CONCRETE HOPPER OPERATOR Plan of Treatment Health Maintenance Due Date Last Done Comments DTAP/TDAP/TD VACCINES (1 - Tdap) 1995 HEPATITIS B VACCINES (1 of 3 - 19+ 3-dose series) 06/29 COLORECTAL SCREENING 2021 Colorectal Cancer Screening 2021 FIT-DNA Q 3 years 2021 FIT/FOBT Q 1 year 2021 Flex Sig/CT Colonography Q 5 years 2021 INFLUENZA VACCINE (#1) 2025 Insurance [facility] BLUE ACCESS CHOICE Care Teams Wood Heel Attacher Relationship Specialty Start Date End Date Simon Duenas DO PCP - General 08/14/15
--- OUTSIDE RECORDS SUMMARY | 2025-04-02 10:52 | XMS_ITS | Clinical Summary ---
Author Organization [facility] Address [address] [place] [address] Care Team Providers Care Data Sciences Director Name Role Phone Wilian Youngblood MD Primary Care Provider [phone] Source Comments [facility],non-owned Affiliates and Associated Physician Practices is amultiple site organization consisting of ambulatory clinics and hospital sitesin [place], [place] and [place]. This disclosure is being madepursuant to the Care Everywhere program and may not contain all information available regarding this patient. Last updated 18.[facility] Allergies No known active allergies Medications * Be aware that medications may not be up to date on this document. Alwaysverify current medications with the patient. Blood Glucose Monitoring Suppl ([employer] VERIO IQ SYSTEM) W/DEVICE KIT Use 1 kit as directed 1 kit 11/09/19 18 Active blood glucose (HAMLET CONTOUR NEXT TEST) test strip Use 1 strip 4 times daily 400 strip 1 04/04/20 18 Active CIALIS 5 MG tablet Take 1 (one) tablet by mouth once as needed 05/12/20 18 Active ezetimibe (ZETIA) 10 MG tablet 09/30/19 21 Active rosuvastatin (CRESTOR) 40 MG tablet Take 1 (one) tablet by mouth once daily 11/26/19 21 Active vitamin D3 (Cholecalciferol ) 25 MCG (1000 UNITS) tablet Take 4 (four) tablets by mouth once daily Active omeprazole EC (PriLOSEC OTC) 20 MG tablet Take 1 (one) tablet by mouth daily before breakfast Active Multiple Vitamin (MULTIVITAMIN ADULT PO) Active insulin glargine (Lantus/Semglee) 100 units/mL pen Inject 24 (twenty four) Units subcutaneously at bedtime 15 mL 1 04/01/20 22 Active Additional Information Patient not taking.Reported on 06/06/2024 Insulin Syringes, Disposable, U-100 1 ML MISCIndications: Type 1 diabetes mellitus without complication (HCC) Use 1 Each 3 times daily 100 Each 08/04/20 23 Active OneTouch Verio test stripIndications :Type 1 diabetes mellitus without complication (HCC) USE 1 STRIP WITH METER 4 TIMES DAILY 400 strip 3 08/10/20 23 Active albuterol HFA (Proventil; Ventolin; Proair) 108 (90 Base) MCG/ACT inhaler INHALE 1 PUFF BY MOUTH EVERY 4 HOURS NEEDED FOR SHORTNESS OF BREATH AND/OR WHEEZING 10/07/19 24 Active buPROPion XL 24hr (Wellbutrin-XL) 150 MG tablet 02/14/20 24 Active LORazepam (Ativan) 0.5 MG tablet 02/14/20 24 Active Continuous Glucose Transmitter (Dexcom G6 Transmitter) MISCIndications: Type 1 diabetes mellitus without complication (HCC) USE ONE TRANSMITTER WITH CHIMNEY MECHANIC/SENSORS AND REPLACE EVERY 3 MONTHS 1 Each 1 02/20/20 24 Active Continuous Glucose Sensor (Dexcom G7 Sensor) MISCIndications: Type 1 diabetes mellitus without complication (HCC) Use 1 Each every 10 days 9 Each 3 04/25/20 24 Active insulin lispro (HumaLOG) 100 UNIT/ML vial INJECT SUBCUTANEOUSLY UP TO 90 UNITS DAILY VIA INSULIN PUMP 90 mL 02/12/20 25 Active Active Problems Problem Noted Date Diagnosed Date Dyslipidemia 08/03/2018 Type 1 diabetes mellitus without complication Overview (07/09/2020): Overview: DMI WO CMP NT ST UNCNTRL Dietary counseling and surveillance 07/11/2012 Encounters Date Type Department Care Team Description 02/08/2025 Refill [facility] - Endocrinology [address] [place] [address], [address] [place] [address] Ramos Tapia MD Refill Request from Last 3 Months Immunizations Immunization Administration Dates Next Due INFLUENZA VACCINE, QUADR. 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 Not on file Not on file Last Filed Vital Signs Vital Sign Reading Time Taken Comments Blood Pressure 116/70 06/06/2024 11:13 AM CDT Pulse - - Temperature - - Respiratory Rate - - Oxygen Saturation - - Inhaled Oxygen Concentration - - Weight 108.4 kg (239 lb) 06/06/2024 11:13 AM CDT Height 188 cm (6' 2) 06/06/2024 11:13 AM CDT Body Mass Index [...] RETINOPATHY SCREENING 10/16/2020 10/16/2018, 09/28/2017 COVID-19 VACCINE ( season) 2024 DEPRESSION SCREENING 08/29/2024 DIABETES-FOOT EXAM WITH MONOFILAMENT 02/14/2025 02/15/2024 INFLUENZA VACCINE (#1) 2025 05/07/2020, 2018 DIABETES-HGB A1C 05/29/2025 11/27/2024, 04/2024, 02/15/2024, Additional [...] Procedure Name Priority Date/Time Associated Diagnosis Comments MICROALB/CREAT RATIO URINE RANDOM PANEL Routine 11/27/2024 11:25 AM CDT Type 1 diabetes mellitus without complication (HCC) COMPREHENSIVE METABOLIC PANEL Routine 11/27/2024 11:25 AM CDT Type 1 diabetes mellitus without complication (HCC) HEMOGLOBIN A1C Routine 11/27/2024 11:25 AM CDT Type 1 diabetes mellitus without complication (HCC) HM DIABETES EYE EXAM Routine 10/16/2018 from Last 3 Months or Most Recently Relevant to Health Maintenance Results * MICROALB/CREAT RATIO URINE RANDOM PANEL (11/27/2024 [...] 11/28/2024 12:07 PM CDT Performed at: - [address] [id number] Tractor Trailer Mechanic: Ryan Hall PhD, Phone: [phone] Ramos Tapia MD LAB - URINE CHEMISTRY ORDER ZAINAB Final Result Performing Organization Address [facility] de Phone Number [facility] ACCOUNT BILL [address] [place] [address] * (ABNORMAL) HEMOGLOBIN A1C (11/27/2024 11:25 AM CDT) Hemoglobin A1c 7.0(H) 4.8 - 5.6 % [facility] ACCOUNT BILL Comment: Prediabetes: 5.7 - 6.4 Diabetes: >6.4 Glycemic control for adults with diabetes: <7.0 Blood BLOOD SPECIMEN / Unknown 11/27/2024 11:25 AM CDT 11/27/2024 Narrative [facility] ACCOUNT BILL - 11/28/2024 6:06 AM CDT Performed at: [address] [id number] Tractor Trailer Mechanic: Ryan Hall PhD, Phone: [phone] Ramos Tapia MD LAB - CHEMISTRY ORDERABLES Final Result Performing Organization Address [facility] de Phone Number [facility] ACCOUNT BILL [address] [place] [address] * (ABNORMAL) COMPREHENSIVE METABOLIC PANEL (11/27/2024 11:25 [...] 8:07 AM CDT Performed at: 01 - [address] [id number] Tractor Trailer Mechanic: Ryan Hall PhD, Phone: [phone] us Ramos Tapia MD LAB - CHEMISTRY ORDERABLES Final Result [facility] ACCOUNT BILL [address] [place] [address] * DIABETES EYE EXAM (10/16/2018) us Terell Betts HEALTH MAINTENANCE Final Resu lt from Last 3 Months or Most Recently Relevant to Health Maintenance Insurance [facility] Care Teams Data Sciences Director Relationship Specialty Start Date End Date Wilian Youngblood MD [address] [place] [address] PCP - General Internal Medicine 11/02/22
== END 2025-04-02 10:25 | disposition home or self-care (01) ==
PROVIDERS: PCP Internal Medicine; Visit Provider Internal Medicine
DX: S92.411A Displaced fracture of proximal phalanx of right great toe, initial encounter for closed fracture (principal); M79.672 Pain in left foot; M25.572 Pain in left ankle and joints of left foot
CPT/HCPCS: 73610; 73630

== ENCOUNTER 2025-06-27 08:56 | Outpatient (CLI) | payer OTHER, SELFPAY ==
--- NOTE | ~2025-06-27 | US_ITS ---
EXAM/PROCEDURE: US aorta HISTORY: Z82.49 - Family history of ischemic heart disease and oth. COMPARISON: None available. TECHNIQUE: Grayscale, color Doppler, and spectral analysis. FINDINGS: There is no evidence of aneurysm. Likewise, there is no aneurysm of the common iliac arteries seen. There is a moderate degree of atherosclerotic plaque, some of which appears calcified. There is irregular surface characteristics to some of the plaque. IMPRESSION: No evidence of aneurysm. Atherosclerotic change. Reviewed, dictated and finalized at location A.
--- OUTSIDE RECORDS SUMMARY | 2025-06-27 09:19 | XMS_ITS | Clinical Summary ---
Author Organization [email or web address] Address [address] [place] [address] Care Team Providers Care Director Of Institutional Sales Name Role Phone Wilian Youngblood MD Primary Care Provider Source Comments [email or web address],non-owned Affiliates and Associated Physician Practices is amultiple site organization consisting of ambulatory clinics and hospital sitesin [place], [place], [place] and [place]. This disclosure is being madepursuant to the Care Everywhere program and may not contain all information available regarding this patient. Last updated 18.[email or web address] Allergies No known active allergies Medications * Be aware that medications may not be up to date on this document. Alwaysverify current medications with the patient. Blood Glucose Monitoring Suppl ([employer] VERIO IQ SYSTEM) W/DEVICE KIT Use 1 [...] without complication (HCC) USE ONE TRANSMITTER WITH TELEMETRY REGISTERED NURSE/SENSORS AND REPLACE EVERY 3 MONTHS 1 Each 1 02/20/20 24 Active insulin lispro (HumaLOG) 100 UNIT/ML vial INJECT SUBCUTANEOUSLY UP TO 90 UNITS DAILY VIA INSULIN PUMP 90 mL 04/18/20 25 Active Continuous Glucose Sensor (Dexcom G7 Sensor) MISCIndications: Type 1 diabetes mellitus without complication (HCC) CHANGE SENSOR EVERY 10 DAYS 9 Each 05/16/20 25 Active Active Problems Problem Noted Date Diagnosed Date Dyslipidemia 08/03/2018 Type 1 diabetes mellitus without complication Overview (05/29/2025): Overview: DMI WO CMP NT [facility] UNCN[facility] IMO 05/29/2025 Dietary counseling and surveillance 07/11/2012 Encounters Date Type Department Care Team Description 05/16/2025 Refill [facility] - Endocrinology [address] [place] [address], [address] [place] [address] Ramos Tapia MD Refill Request 05/06/2025 Refill [facility] - Endocrinology [address] [place] [address], [address] [place] [address] Ramos Tapia MD Refill Request 04/17/2025 Refill 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 CONSULTANT Office Visit [facility] Endocrinology [address] [place] [address], [address] [address] Ramos Tapia MD [address] [place] [address] [place] [address] Health Maintenance Due Date Last Done Comments [...] 1995 DIABETES RETINOPATHY SCREENING 10/16/2020 10/16/2018, 09/28/2017 DEPRESSION SCREENING 08/29/2024 DIABETES-FOOT EXAM WITH MONOFILAMENT 02/14/2025 02/15/2024 COVID-19 VACCINE ( season) 2025 INFLUENZA VACCINE (#1) 2025 05/07/2020, 2018 DIABETES-HGB [...] 11/28/2024 12:07 PM CDT Performed at: - [address] [id number] Pack Train Driver: Ryan Hall PhD, Phone: [phone] us Ramos Tapia MD LAB - URINE CHEMISTRY ORDER ZAINAB Final Result [facility] ACCOUNT BILL [address] [place] [address] * (ABNORMAL) HEMOGLOBIN A1C (11/27/2024 11:25 AM CDT) Hemoglobin A1c 7.0(H) 4.8 - 5.6 % [facility] ACCOUNT BILL Comment: Prediabetes: 5.7 - 6.4 Diabetes: >6.4 Glycemic control for adults with diabetes: <7.0 Blood BLOOD SPECIMEN / Unknown 11/27/2024 11:25 AM CDT 11/27/2024 Narrative [facility] ACCOUNT BILL - 11/28/2024 6:06 AM CDT Performed at: 01 - [address] [id number] Pack Train Driver: Ryan Hall PhD, Phone: [phone] us Ramos Tapia MD LAB - CHEMISTRY ORDERABLES Final Result [facility] ACCOUNT BILL [address] [place] [address] * (ABNORMAL) COMPREHENSIVE METABOLIC PANEL (11/27/2024 11:25 AM CDT) [facility] Glucose 135(H) 70 - 99 mg/dL [facility] [...] AM CDT Performed at: 01 - [facility] [address] [id number] Pack Train Driver: Ryan Hall PhD, Phone: [phone] us Ramos Tapia MD LAB - CHEMISTRY ORDERABLES Final Result [facility] ACCOUNT BILL [address] [place] [address] * DIABETES EYE EXAM (10/16/2018) us Terell Betts HEALTH MAINTENANCE Final Resu lt from Last 3 Months or Most Recently Relevant to Health [place] [address] [facility] Care Teams Director Of Institutional Sales Relationship Specialty Start Date End Date Wilian Youngblood MD [address] [place] [address] PCP - General Internal Medicine 11/02/22
--- OUTSIDE RECORDS SUMMARY | 2025-06-27 09:20 | XMS_ITS | Clinical Summary ---
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
--- OUTSIDE RECORDS SUMMARY | 2025-06-27 09:20 | XMS_ITS | Clinical Summary ---
Author Organization [facility] Address [address] [place] [address] Phone Care Team Providers Care Pneumatic Tube Repairer Name Role Phone Simon Duenas DO Primary [...] on file Legal Sex Male 3:15 PM CLINICAL PHARMACY MANAGER Gender Identity Not on file Sexual Orientation Not on file Last Filed Vital Signs Vital Sign Reading Time Taken Comments Blood Pressure 112/75 10/22/2014 1:41 PM CLINICAL PHARMACY MANAGER Pulse - - Temperature - - Respiratory Rate - - Oxygen Saturation - - Inhaled Oxygen Concentration - - Weight 99.8 kg (220 lb) 10/22/2014 1:41 PM CLINICAL PHARMACY MANAGER Height 188 cm (6' 2) 10/22/2014 1:41 PM CLINICAL PHARMACY MANAGER Body Mass Index 28.25 10/22/2014 1:41 PM CLINICAL PHARMACY MANAGER Plan of Treatment Health Maintenance Due Date Last Done Comments DTAP/TDAP/TD VACCINES (1 - Tdap) 1995 HEPATITIS B VACCINES (1 of 3 - 19+ 3-dose series) 06/29 COLORECTAL SCREENING 2021 Colorectal Cancer Screening 2021 FIT-DNA Q 3 years 2021 FIT/FOBT Q 1 year 2021 Flex Sig/CT Colonography Q 5 years 2021 INFLUENZA VACCINE (#1) 2025 Insurance [facility] BLUE ACCESS CHOICE Care Teams Pneumatic Tube Repairer Relationship Specialty Start Date End Date Simon Duenas DO PCP - General 08/14/15
== END 2025-06-27 08:57 | disposition home or self-care (01) ==
PROVIDERS: PCP Internal Medicine; Visit Provider Internal Medicine
DX: E78.2 Mixed hyperlipidemia (principal); E10.3299 Type 1 diabetes mellitus with mild nonproliferative diabetic retinopathy without macular edema, unspecified eye; Z82.49 Family history of ischemic heart disease and other diseases of the circulatory system
CPT/HCPCS: 76775